=== PATIENT | male | born 1985 | race Hispanic/Latino ===

== ENCOUNTER 2019-09-17 13:46 | Emergency (ER) | payer OTHER, SELFPAY ==
[2019-09-17 13:45] VITALS: BP 155/95; PULSE 85; RESP 18; TEMP 36.7; O2SAT 98
--- NOTE | 2019-09-17 13:47 | DI.CT.S_ITS ---
PROCEDURE: CT HEAD/BRAIN WO CON INDICATIONS: code stroke TECHNIQUE: Noncontrast 4.5 mm thick angled axial sections acquired from the foramen magnum to the vertex, with coronal and sagittal reformats. For radiation dose reduction, the following was used: automated exposure control, adjustment of mA and/or kV according to patient size. COMPARISON: None. FINDINGS: Image quality: Evaluation markedly limited by motion artifact. CSF spaces: Basal cisterns are patent. No extra-axial fluid collections. The ventricles are symmetric in size and shape. Brain: No definite intracranial hemorrhage, mass, or mass effect. Evaluation is markedly limited at the level of the basilar cisterns and posterior fossa by motion artifact. The fernández-white matter junction appears preserved were visualized. Skull and face: Calvarium and visualized facial bones are intact, without suspicious lesions. Sinuses: Visualized sinuses and mastoids are clear. IMPRESSION: 1. Markedly limited study demonstrates no definite acute intracranial abnormality, with nondiagnostic evaluation of the level of the basilar cisterns and posterior fossa. Dictated by: Iggy Briceño M.D. on 09/17/2019 at 13:24 Approved by: Iggy Briceño M.D. on 09/17/2019 at 13:26
--- NOTE | 2019-09-17 13:50 | DI.CT.S_ITS ---
PROCEDURE: CT ANGIO HEAD AND NECK INDICATIONS: Code stroke TECHNIQUE: Pre-contrast 4.5 mm thick sections acquired from the foramen magnum to the vertex. After the administration of intravenous contrast, 1 mm thick sections acquired from the aortic arch through the [place] of [place]. Post-contrast 4.5 mm thick sections then re-acquired from the foramen magnum to the vertex. 3-dimensional vlfjcvg-dwhjbmgao-qlmrjjxmrx (MIP) and/or volume rendering reformats were acquired of the central intracranial vasculature and neck separately. COMPARISON: [facility], CT, CT HEAD/BRAIN WO CON, 09/17/2019, 13:46. FINDINGS: Image quality: Excellent. BRAIN: CSF spaces: Basal cisterns are patent. No extra-axial fluid collections. The ventricles are symmetric in size and shape. Brain: No intracranial hematoma collections, mass, or mass effect. The fernández-white matter junction appears preserved. No abnormal intracranial enhancement. Skull and face: Calvarium and facial bones appear intact, without suspicious lesions. Orbits appear normal. Sinuses: Sinuses and mastoids are clear. HEAD CT ANGIOGRAPHY: Anterior circulation: Intracranial internal carotid arteries appear patent bilaterally. The anterior cerebral arteries appear patent bilaterally. The anterior communicating artery appears patent. The middle cerebral arteries appear patent bilaterally. No high-grade stenosis, occlusion, or filling defects identified. No discrete aneurysm visualized. Posterior circulation: Visualized portions of the vertebral arteries demonstrate appear patent bilaterally and join to form a patent basilar artery. The posterior cerebral arteries appear patent bilaterally. No high-grade stenosis, occlusion, or filling defects identified. No definite cerebral aneurysms. NECK CT ANGIOGRAPHY: Carotid system: The great vessels demonstrate conventional anatomy as they arise from the aortic arch. The origins of the common carotid arteries appear patent. The common carotid arteries demonstrate normal caliber and courses. The bifurcation regions are both widely patent. The internal carotid arteries demonstrate normal calibers and courses. Posterior circulation: The origins of the vertebral arteries both appear widely patent. The more superior extracranial portions of both vertebral arteries also demonstrate normal courses and calibers. They join to form a patent basilar artery. Soft tissues: Visualized neck soft tissues demonstrate no suspicious abnormalities. Bones: No suspicious bony lesions. Visualized cervical spine appears normally aligned. IMPRESSION: 1. No definite acute intracranial abnormality. 2. No high-grade stenosis or occlusion of the central intracranial arteries. 3. No high-grade stenosis or occlusion of the head and neck arteries. The carotid bulbs appear widely patent. Any quantitative measurements of stenosis were performed using NASCET criteria. Dictated by: Iggy Briceño M.D. on 09/17/2019 at 13:27 Approved by: Iggy Briceño M.D. on 09/17/2019 at 13:36
[2019-09-17 14:26] LABS: Add Manual Diff / Slide Review NO; Basophils Absolute Auto 100 /uL (0-100); Basophils Percent Auto 0.6 % (0-2); Eosinophils Absolute Auto 100 /uL (0-450); Eosinophils Percent Auto 1.1 % (2-4); Hematocrit 40.8 % (41-53); Hemoglobin 14.1 g/dL (13.5-17.5); Lymphocytes Absolute Auto 2000 /uL (1100-4500); Lymphocytes Percent Auto 19.1 % (25-40); Mean Corpuscular HGB Conc 34.6 % (30-36); Mean Corpuscular Volume 86.8 fL (80-100); Monocytes Absolute Auto 600 /uL (0-900); Monocytes Percent Auto 5.5 % (3-14); Neutrophils Absolute Auto 7800 /uL (1500-7000); Neutrophils Percent Auto 73.7 % (50-75); Platelet Count 208 X10^3/uL (150-400); Red Blood Cell Count 4.71 X10^6/uL (4.5-5.9); Red Cell Distribution Width 12.3 % (11.6-14.8); White Blood Cell Count 10.6 X10^3/uL (4.5-11.0)
[2019-09-17 14:30] VITALS: BP 146/96; PULSE 88; O2SAT 100
[2019-09-17 14:31] VITALS: BP 146/96; PULSE 109; RESP 20; TEMP 37.1; O2SAT 100
[2019-09-17 14:32] LABS: INR 1.1 (0.9-1.3); Prothrombin Time 12.5 SECONDS (10.1-12.7)
[2019-09-17 14:35] LABS: PTT Partial Thromboplastin Tim 30 SECONDS (26.4-36.2)
[2019-09-17 14:37] LABS: Alanine Aminotransferase 31 IU/L (<50); Albumin 4.4 g/dL (3.5-5.0); Albumin Globulin Ratio 1.6 (1.0-2.8); Alkaline Phosphatase 90 U/L (38-126); Aspartate Aminotransferase 32 IU/L (17-59); BUN Creatinine Ratio 11.1 (6-22); Bilirubin Total 0.9 mg/dL (0.2-1.3); Blood Urea Nitrogen 10 mg/dL (9-20); Calcium 9.1 mg/dL (8.4-10.2); Carbon Dioxide 20 mmol/L (22-32); Chloride 96 mmol/L (98-107); Estimated Glomerular Filt Rate > 60.0 mL/min (>60); Ethanol (ETOH) < 10 mg/dL; Globulin 2.8 g/dL (1.7-4.1); Glucose 101 mg/dL (70-100); HEMOLYSIS < 15 (0-50); Potassium 3.3 mmol/L (3.4-5.1); Sodium 132 mmol/L (137-145); Total Protein 7.2 g/dL (6.3-8.2)
[2019-09-17] MEDS: ACETAMINOPHEN 325 MG TABLET 650 MG PO (14:42)
[2019-09-17] MEDS: diphenhydrAMINE 50 MG/ML VIAL 25 MG IV (14:42)
[2019-09-17] MEDS: METOCLOPRAMIDE 10 MG/2 ML INJ IV (14:42)
[2019-09-17] MEDS: SODIUM CHLORIDE 0.9% 1,000 ML 1000 ML IV (14:42)
--- NOTE | 2019-09-17 14:48 | PC.NURSE ---
1346: Pt arrived to ED via [facility] after sudden onset 10/10 headache. reports he had just showered prior to onset of sx. EMS report at 1320 pt with no focal weakness. Received follow up phone call around 1325 stating pt with R UE weakness and facial droop and to activate Code Stroke. Activated. Pt with rapid assessment by Dr Peters and pt immediately to CT. On arrival glucose 91. Pt skin cool with shaking chills. covered with warm blankets. 20G RAC IV placed in field. Pt with transient UE weakness bilaterally. PERLL. Decreased verbal response/not answering RN questions although awake and alert with adequate eye contact. no gaze noted. States my head. 1354: CT/CTA obtained. pt tolerated well. With RN to Rm 1. Labs obtained and EKG performed. NIH completed with RN and MD. NIH 0. Pt increasingly more verbal. Mild peruvian language barrier. at bedside. Pt states pain decreased to 7/10. Meds given per MAR. Resting in bed. attached to cardiac monitoring. HR 97 BP 146/96. awaiting further orders
[2019-09-17 14:59] VITALS: BP 155/95; PULSE 109; RESP 20; TEMP 37.1; O2SAT 100; BMI 27.9
--- NOTE | 2019-09-17 15:10 | ED.NEUROSD ---
HPI - Neuro Symptoms/Deficit General Chief Complaint: Neuro Symptoms/Deficit Stated Complaint: Headache Time Seen by Provider: 09/17/19 13:46 Source: EMS Mode of arrival: EMS Limitations: no limitations History of Present Illness HPI Narrative: This is a 33-year-old male who denies past medical history who presents with headache as well as some changes in mental status. Patient states that he had a light headache which is over the bilateral posterior aspect of his head this morning, he took a shower around 11:00 a.m., and he had worsening of his headache, became severe so he was seen in clinic, and it sounds like a clinic his responsiveness changed, he was still awake and alert but he was not answering questions, and en route his EMS crew states that he had some intermittent transient weakness 1st on the right than on the left, this is tested with hand squeeze, and was unclear if it was voluntary or not given it seemed to fluctuate. Patient currently is complaining of a severe headache in his posterior occiput, no chest pain, no shortness of breath, no fever. He typically does not get headaches. He did not fall or hit his head. No vomiting. No history of aneurysm, no blood thinners. On Anticoagulants: No Related Data Home Medications Medication Instructions Recorded Confirmed No Known Home Medications 09/17/19 09/17/19 Allergies Allergy/AdvReac Type Severity Reaction Status Date / Time No Known Drug Allergies Allergy Verified 09/17/19 14:02 Review of Systems Constitutional Constitutional: Denies fever(s) and Reports headache(s) ENT Ears, Nose, Mouth, and Throat: Reports headache(s) Cardiovascular Cardiovascular: Denies chest pain and Denies dyspnea Respiratory Respiratory: Denies dyspnea Gastrointestinal Gastrointestinal: Denies vomiting Genitourinary Genitourinary: Denies dysuria Integumentary/Breasts Skin/Breast: Denies rash Neurologic Neurologic: Reports abnormal speech and Reports headache(s) Exam Narrative Exam Narrative: General: Awake, alert Head: Atraumatic Neck: Normal range of motion, no neck stiffness Cardiac: RRR on my exam Respiratory: Normal work of breathing, clear to auscultation bilaterally Abd: Soft, non-tender to palpation in all 4 quadrants Initial Vital Signs Initial Vital Signs: Vital Signs Temperature 98.1 F 09/17/19 13:45 Pulse Rate 85 09/17/19 13:45 Respiratory Rate 18 09/17/19 13:45 Blood Pressure 155/95 H 09/17/19 13:45 Pulse Oximetry 98 09/17/19 13:45 Neuro General: alert, awake and oriented x3 Cranial Nerves: CN's II-XI intact bilaterally Cognition: normal cognition Speech: speech normal Motor: muscle tone normal throughout Sensory Exam: no sensory deficits noted Coordination: ovqjzj-kw-[id number] test normal and ekcr-od-[id number] test normal Pupils: Normal pupillary reactivity/response: right and left Other: Initially patient has 4/5 strength with hand squeeze bilaterally, but after explaining to him the importance of full effort, he has full 5/5 strength in all 4 extremities and no drift. Scores NIH Stroke Scale Level of Conciousness: Alert, keenly responsive Ask month/age: Answers both questions correctly. Open/close eyes, close hand: Performs both tasks correctly Best gaze horizontal: Normal Visual la: No visual loss Facial palsy: Normal symetrical movement Left arm drift: No drift for full 10 sec Right arm drift: No drift for full 10 sec Left leg drift: No drift for full 10 sec Right leg drift: No drift for full 10 sec Limb ataxia: Absent Sensory on face/arms/legs: Normal, no sensory loss Best language: No aphasia, normal Dysarthria: Normal Extinction or inattention: No abnormality Total NIH Stroke scale score: 0 Course Orders Ordered: ED Orders 09/17/19 13:47 CT head/brain wo con Stat 09/17/19 13:50 CT angio head and neck Stat EKG-12 Lead Stat 09/17/19 14:21 Complete Blood Count AUTO DIFF Stat Comprehensive Metabolic Panel Stat Ethanol (ETOH) Stat Partial Thromboplastin Time Stat Prothrombin Time INR Stat 09/17/19 15:18 Urine Drug Screen, Rapid Stat Discontinued Medications Acetaminophen (Tylenol) 650 mg PO NOW ONE Stop: 09/17/19 14:28 Last Admin: 09/17/19 14:42 Dose: 650 mg Documented by: AR Diphenhydramine HCl (Benadryl) 25 mg IV NOW ONE Stop: 09/17/19 14:28 Last Admin: 09/17/19 14:42 Dose: 25 mg Documented by: AR Sodium Chloride (Normal Saline 0.9%) 1,000 mls @ 1,000 mls/hr IV BOLUS STA Stop: 09/17/19 15:26 Last Infusion: 09/17/19 15:37 Dose: 0 mls/hr Documented by: Admin: 09/17/19 14:42 Dose: 1,000 mls/hr Documented by: AR Magnesium Sulfate (Magnesium Sulfate) 2 gm in 50 mls @ 25 mls/hr IV NOW ONE Stop: 09/17/19 17:19 Last Infusion: 09/17/19 16:29 Dose: 0 mls/hr Documented by: AR Cosigned by: KARLOS Admin: 09/17/19 15:35 Dose: 25 mls/hr Documented by: AR Cosigned by: KARLOS Ketorolac Tromethamine (Toradol) 15 mg IV NOW ONE Stop: 09/17/19 16:20 Last Admin: 09/17/19 16:29 Dose: 15 mg Documented by: DEVORAH Metoclopramide HCl (Reglan) 10 mg IV NOW ONE Stop: 09/17/19 14:28 Last Admin: 09/17/19 14:42 Dose: 10 mg Documented by: AR Sumatriptan Succinate (Imitrex) 6 mg SUBCUT NOW ONE Stop: 09/17/19 15:20 Last Admin: 09/17/19 15:36 Dose: 6 mg Documented by: AR Vital Signs Vital signs: Vital Signs - 8 hr 09/17/19 13:45 09/17/19 14:30 09/17/19 14:31 Temperature 98.1 F 98.7 F Pulse Rate 85 88 109 H Respiratory Rate 18 20 Blood Pressure 155/95 H Blood Pressure [Left Arm] 146/96 H 146/96 H Pulse Oximetry 98 100 100 09/17/19 14:59 09/17/19 15:32 09/17/19 16:31 Temperature 98.7 F Pulse Rate 109 H 84 74 Respiratory Rate 20 16 16 Blood Pressure 155/95 H Blood Pressure [Left Arm] 120/73 124/76 Pulse Oximetry 100 100 99 MDM - Neuro Symptoms/Deficit Differential Diagnosis Differential diagnosis: Likely subarachnoid hemorrhage, cerebrovascular accident, transient cerebral ischemia and other (Tension headache, migraine, electrolyte abnormality) Lab Data Attestation: I reviewed the patient's lab results. Result diagrams: 09/17/19 14:21 09/17/19 14:21 Labs: Lab Results 09/17/19 09/17/19 09/17/19 Range/Units 14:21 14:21 14:21 WBC 10.6 (4.5-11.0) X10^3/uL RBC 4.71 (4.5-5.9) X10^6/uL Hgb 14.1 (13.5-17.5) g/dL Hct 40.8 L (41-53) % MCV 86.8 (80-100) fL MCH 30.0 (26-34) PG MCHC 34.6 (30-36) % RDW 12.3 (11.6-14.8) % Plt Count 208 (150-400) X10^3/uL Neut % (Auto) 73.7 (50-75) % Lymph % (Auto) 19.1 L (25-40) % [place] % (Auto) 5.5 (3-14) % Eos % (Auto) 1.1 L (2-4) % Baso % (Auto) 0.6 (0-2) % Neut # (Auto) 7800 H (9936-8714) /uL Lymph # (Auto) 2000 (1764-5261) /uL [place] # (Auto) 600 (0-900) /uL Eos # (Auto) 100 (0-450) /uL Baso # (Auto) 100 (0-100) /uL PT 12.5 (10.1-12.7) SECONDS INR 1.1 (0.9-1.3) APTT 30 (26.4-36.2) SECONDS Sodium 132 L (137-145) mmol/L Potassium 3.3 L (3.4-5.1) mmol/L Chloride 96 L (98-107) mmol/L Carbon Dioxide 20 L (22-32) mmol/L BUN 10 (9-20) mg/dL Creatinine 0.90 (0.66-1.25) mg/dL Estimated GFR > 60.0 (>60) mL/min BUN/Creatinine Ratio 11.1 (6-22) Glucose 101 H (70-100) mg/dL Calcium 9.1 (8.4-10.2) mg/dL Total Bilirubin 0.9 (0.2-1.3) mg/dL AST 32 (17-59) IU/L ALT 31 (<50) IU/L Alkaline Phosphatase 90 (38-126) U/L Total Protein 7.2 (6.3-8.2) g/dL Albumin 4.4 (3.5-5.0) g/dL Globulin 2.8 (1.7-4.1) g/dL Albumin/Globulin Ratio 1.6 (1.0-2.8) U Morph 300 ng/mL cutoff (Negative) Ur Oxycodone Screen (Negative) Urine Methadone Screen (Negative) Ur Barbiturates Screen (Negative) U Tricyclic Antidepress (Negative) Ur Phencyclidine Scrn (Negative) Ur Amphetamines Screen (Negative) U Methamphetamines Scrn (Negative) Ur MDMA Scrn (Ecstasy) (Negative) U Benzodiazepines Scrn (Negative) Urine Cocaine Screen (Negative) U Marijuana (THC) Screen (Negative) Ethyl Alcohol < 10 ( - 10) mg/dL 09/17/19 Range/Units 15:18 WBC (4.5-11.0) X10^3/uL RBC (4.5-5.9) X10^6/uL Hgb (13.5-17.5) g/dL Hct (41-53) % MCV (80-100) fL MCH (26-34) PG MCHC (30-36) % RDW (11.6-14.8) % Plt Count (150-400) X10^3/uL Neut % (Auto) (50-75) % Lymph % (Auto) (25-40) % [place] % (Auto) (3-14) % Eos % (Auto) (2-4) % Baso % (Auto) (0-2) % Neut # (Auto) (4910-6537) /uL Lymph # (Auto) (6061-3527) /uL [place] # (Auto) (0-900) /uL Eos # (Auto) (0-450) /uL Baso # (Auto) (0-100) /uL PT (10.1-12.7) SECONDS INR (0.9-1.3) APTT (26.4-36.2) SECONDS Sodium (137-145) mmol/L Potassium (3.4-5.1) mmol/L Chloride (98-107) mmol/L Carbon Dioxide (22-32) mmol/L BUN (9-20) mg/dL Creatinine (0.66-1.25) mg/dL Estimated GFR (>60) mL/min BUN/Creatinine Ratio (6-22) Glucose (70-100) mg/dL Calcium (8.4-10.2) mg/dL Total Bilirubin (0.2-1.3) mg/dL AST (17-59) IU/L ALT (<50) IU/L Alkaline Phosphatase (38-126) U/L Total Protein (6.3-8.2) g/dL Albumin (3.5-5.0) g/dL Globulin (1.7-4.1) g/dL Albumin/Globulin Ratio (1.0-2.8) U Morph 300 ng/mL cutoff Negative (Negative) Ur Oxycodone Screen Negative (Negative) Urine Methadone Screen Negative (Negative) Ur Barbiturates Screen Negative (Negative) U Tricyclic Antidepress Negative (Negative) Ur Phencyclidine Scrn Negative (Negative) Ur Amphetamines Screen Negative (Negative) U Methamphetamines Scrn Negative (Negative) Ur MDMA Scrn (Ecstasy) Negative (Negative) U Benzodiazepines Scrn Negative (Negative) Urine Cocaine Screen Negative (Negative) U Marijuana (THC) Screen Negative (Negative) Ethyl Alcohol ( - 10) mg/dL Point of Care Testing Glucose POC [address] scan - head: Radiologist's impression: IMPRESSION: 1. Markedly limited study demonstrates no definite acute intracranial abnormality, with nondiagnostic evaluation of the level of the basilar cisterns and posterior fossa. Dictated by: Iggy Briceño M.D. on 09/17/2019 at 13:24 Approved by: Iggy Briceño M.D. on 09/17/2019 at 13:26 CTA head and neck: Radiologist's impression: IMPRESSION: 1. No definite acute intracranial abnormality. 2. No high-grade stenosis or occlusion of the central intracranial arteries. 3. No high-grade stenosis or occlusion of the head and neck arteries. The carotid bulbs appear widely patent. Any quantitative measurements of stenosis were performed using NASCET criteria. Dictated by: Iggy Briceño M.D. on 09/17/2019 at 13:27 Approved by: Iggy Briceño M.D. on 09/17/2019 at 13:36 ECG Data Interpretation: Rate 86, rhythm sinus, and there is no ST segment elevation or depression, no abnormal T-wave inversions, there is some baseline wander especially in V5 which obscures detailed evaluation in this lead MDM Narrative Medical decision making narrative: On arrival patient is awake, alert, he initially was not answering questions until I explained to him the importance of getting information he began speaking normally. His hand squeeze initially was somewhat weak, but this seemed to vary from his left to right hand, seemed very effort-dependent and again after I encouraged him for his best effort he had full 5/5 strength in all extremities. He never had any persistent or convincing deficit on any of my exams. He was taken immediately to CT where CT of the head was unrevealing, though somewhat limited by movement, and CTA of his head and neck also showed no significant stenosis or aneurysm or other abnormality. I performed the entire in-depth neurologic exam with the patient afterwards, and his NIH stroke scale is 0. On repeat examination he continued to have no neurologic deficits. He was given a migraine cocktail for his symptoms and his headache decreased to 5/10. Labs show a mild hyponatremia and hypochloremia, but no significant abnormalities that would explain his symptoms. On repeat examination patient continues to feel well, and have a completely normal neurologic exam. His symptoms are very abnormal for TIA or stroke, and he also has no risk factors for either of these conditions. No confusion, fever, or neck stiffness or leukocytosis to suggest infection or meningitis. MUDS negative. Subarachnoid hemorrhage was of high concern, though it is unlikely given he had a CT head within a few hours of the onset of his symptoms, as well as a negative CTA head and neck. I did discuss with him that a lumbar puncture is the gold standard to rule out subarachnoid hemorrhage or bleed, and that his initial CT was somewhat limited due to his movement. I offered him this procedure but he refused it. He does understand the risk of potential missed head bleed which could be disabling or life-threatening. After several hours of observation in the emergency department patient continues to feel well and would like to go home. I discussed the diagnostic uncertainty of our results, and the importance for PCP follow-up and return to the emergency department if he has any worsening. I also discussed concerning symptoms with patient's , who is in agreement and will monitor patient carefully. Discharge Plan Departure Patient Disposition: Home Clinical Impression: Headache Qualifiers: Headache type: unspecified Headache chronicity pattern: unspecified pattern Intractability: not intractable Qualified Code(s): R51 - Headache Discharge Date/Time: 09/17/19 16:37 Instructions: DI for Headache Activity Restrictions/Additional Instructions: You were seen today for a bad headache. The scans of your head did not show any obvious cause of your headache, I am glad that you are now feeling better. Your labs did show a slightly low sodium and potassium, please follow-up with your primary care doctor to have repeat labs checked to make sure these are not worsening. If you have any recurrence of severe headache, or any other new and concerning symptoms such as fever, weakness or numbness, or confusion, return to the emergency department immediately. Otherwise please follow up with her primary care provider within the next week. You may take Tylenol and ibuprofen for headache if needed. Prescriptions: No Action No Known Home Medications RF: 0
[2019-09-17 15:28] LABS: UR Morphine/Opiate cutoff 300 Negative (Negative); Ur Creatinine 50 (Normal); Ur Specific Gravity 1.015 (Normal); Urine Amphetamines Negative (Negative); Urine Barbiturates Negative (Negative); Urine Benzodiazepines Negative (Negative); Urine Cocaine Negative (Negative); Urine MDMA Negative (Negative); Urine Methadone Negative (Negative); Urine Methamphetamines Negative (Negative); Urine Oxycodone Negative (Negative); Urine Phencyclidine Negative (Negative); Urine Tetrahydrocannabinol Negative (Negative); Urine Tricyclic Antidepressant Negative (Negative); Urine pH 5 (Normal)
[2019-09-17 15:32] VITALS: BP 120/73; PULSE 84; RESP 16; O2SAT 100
[2019-09-17] MEDS: MAGNESIUM SULFATE 2 GM/50 ML PIGGYBACK IV (15:35)
[2019-09-17] MEDS: SUMAtriptan 6 MG/0.5 ML VIAL SUBCUT (15:36)
--- NOTE | 2019-09-17 15:37 | PC.NURSE ---
Pt reports head pain is decreasing. Sumatriptan 6mg given per MAR and Mag 2mg infusing per order. Pt resting in bed and appears more comfortable. at side. remains on cardiac monitoring. Urine obtained and sent per order
[2019-09-17] MEDS: KETOROLAC 60 MG/2 ML VIAL 15 MG IV (16:29)
[2019-09-17 16:31] VITALS: BP 124/76; PULSE 74; RESP 16; O2SAT 99
== END 2019-09-17 16:37 | disposition home or self-care (01) ==
PROVIDERS: Emergency Provider Emergency Medicine
DX: R51 Headache (principal); E87.1 Hypo-osmolality and hyponatremia; E87.8 Other disorders of electrolyte and fluid balance, not elsewhere classified
CPT/HCPCS: 36415; 70450; 70496; 70498; 80053; 80305; 80320; 82962; 85025; 85610; 85730; 93005; 96361; 96365; 96372; 96375; 99283; 99285; 99291; J1200; J1885; J2765; J3030; Q9967

== ENCOUNTER 2019-09-21 10:50 | Emergency (ER) | payer OTHER, SELFPAY ==
[2019-09-21 11:01] VITALS: BP 151/93; PULSE 74; RESP 16; TEMP 36.6; O2SAT 98
--- NOTE | 2019-09-21 11:37 | ED.HA ---
HPI - Headache General Chief Complaint: Headache Stated Complaint: STRONG HEADACHE Time Seen by Provider: 09/21/19 11:37 Source: patient Mode of arrival: Ambulatory Limitations: no limitations History of Present Illness HPI Narrative: This is a 33-year-old male who comes to the emergency department with complaint of headache. She states headache originally occurred Thursday and was sudden onset severe 10/10 worst headache of his life. He was seen here had head CT and CTA which were negative and received medications and had improvement. He states as the medications wore off at he started to have a recurrence of his headache but not to the intensity initially was. He continues to complain of sort of a posterior headache, he states that he also has some low back pain. He states headache is worse when he is upright and better when he is lying flat. Patient states he has had some blurry vision on and off. He states that he had neck pain on Thursday but none now. He denies any fevers or chills. He has had no chest pain or shortness of breath. he was nauseated on Thursday but not since. No vomiting. No issues with urination or bowel movements. No urinary or bladder incontinence. He denies any weakness in his extremities. He felt tingly or numb in his extremities on Thursday but no longer feels that way. Patient states no other prior medical history no prior surgeries. No allergies to medications. 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 He was seen at an outpatient clinic today and they noted his vision was 20/70 bilaterally and was 20/20 several months ago. No other neurologic changes were noted. Related Data Home Medications Medication Instructions Recorded Confirmed acetaminophen 325 mg PO Q4-6H PRN 09/21/19 09/21/19 ibuprofen 600 mg PO QID PRN 09/21/19 09/21/19 sumatriptan succinate 50 mg PO PRN PRN 09/21/19 09/21/19 Previous Rx's Medication Instructions Recorded tramadol [Ultram] 50 mg PO Q6H PRN #5 tab 09/21/19 Allergies Allergy/AdvReac Type Severity Reaction Status Date / Time No Known Drug Allergies Allergy Verified 09/17/19 14:02 Review of Systems Review of Systems ROS Unobtainable: All systems reviewed & are unremarkable except as noted in HPI and below Patient History Social History Smoking Status: Never smoker Smoking Status: Never smoker alcohol intake frequency: holidays/special occasions only Substance Use Type: does not use Exam Narrative Exam Narrative: GEN: well nourished, well appearing male, alert and oriented x 3, patient appears to be in mild distress. HEENT: Atraumatic, pupils are equal round reactive to light, no photophobia, extraocular movements are intact, nares are clear, TMs are clear with no fluid, there is no conjunctival pallor. Throat is clear without any exudates, erythema, tonsillar enlargement or uvular deviation, negative Brudzinski. HEART: Regular rate and rhythm without murmur, clicks, rubs. Pulses are equal in upper and lower extremities LUNGS:Lungs clear to auscultation, no wheezes, rales, crackles, chest moves symmetrically ABD:bowel sounds normal, soft, non-tender, no guarding, rebound, rigidity, no masses noted, no hepatosplenomegaly :No CVA tenderness. MSCL: Non-tender, no muscle atrophy, muscles strength 5/5 upper and lower extremities, full range of motion, normal gait. Patient states a lifting his legs it makes his low back hurt but not his neck or make his headache worse NEURO:CN 2-12 intact, sensation normal. finger nose finger test normal, heel rodarte test normal, romberg normal, normal gait. SKIN: No rash, no petechiae. Initial Vital Signs Initial Vital Signs: Vital Signs Temperature 98 F 09/21/19 11:01 Pulse Rate 74 09/21/19 11:01 Respiratory Rate 16 09/21/19 11:01 Blood Pressure 151/93 H 09/21/19 11:01 Pulse Oximetry 98 09/21/19 11:01 Scores NIH Stroke Scale Level of Conciousness: Alert, keenly responsive Ask month/age: Answers both questions correctly. Open/close eyes, close hand: Performs both tasks correctly Best gaze horizontal: Normal Visual la: No visual loss Facial palsy: Normal symetrical movement Left arm drift: No drift for full 10 sec Right arm drift: No drift for full 10 sec Left leg drift: No drift for full 10 sec Right leg drift: No drift for full 10 sec Limb ataxia: Absent Sensory on face/arms/legs: Normal, no sensory loss Best language: No aphasia, normal Dysarthria: Normal Extinction or inattention: No abnormality Total NIH Stroke scale score: 0 Course Orders Ordered: ED Orders 09/21/19 11:24 Procalcitonin Stat 09/21/19 11:30 Complete Blood Count AUTO DIFF Stat Comprehensive Metabolic Panel Stat Lipase Stat Partial Thromboplastin Time Stat Prothrombin Time INR Stat 09/21/19 11:55 CT head/brain wo con Stat Discontinued Medications Sodium Chloride (Normal Saline 0.9%) 1,000 mls @ 1,000 mls/hr IV BOLUS ONE Stop: 09/21/19 12:56 Last Infusion: 09/21/19 13:42 Dose: 0 mls/hr Documented by: Admin: 09/21/19 12:17 Dose: 1,000 mls/hr Documented by: QUITA Metoclopramide HCl (Reglan) 10 mg IV NOW ONE Stop: 09/21/19 11:58 Last Admin: 09/21/19 12:15 Dose: 10 mg Documented by: QUITA Vital Signs Vital signs: Vital Signs - 8 hr 09/21/19 12:00 09/21/19 13:00 09/21/19 13:41 Pulse Rate 73 89 77 Respiratory Rate 17 16 Blood Pressure 139/78 Blood Pressure [Right Arm] 140/90 132/73 Pulse Oximetry 97 99 98 MDM - Headache Lab Data Attestation: I reviewed the patient's lab results. Result diagrams: 09/21/19 11:30 09/21/19 11:30 Labs: Lab Results 09/21/19 09/21/19 09/21/19 Range/Units 11:24 11:30 11:30 WBC 6.1 (4.5-11.0) X10^3/uL RBC 4.92 (4.5-5.9) X10^6/uL Hgb 15.0 (13.5-17.5) g/dL Hct 42.6 (41-53) % MCV 86.6 (80-100) fL MCH 30.6 (26-34) PG MCHC 35.3 (30-36) % RDW 12.2 (11.6-14.8) % Plt Count 229 (150-400) X10^3/uL Neut % (Auto) 70.6 (50-75) % Lymph % (Auto) 21.8 L (25-40) % Baker % (Auto) 5.1 (3-14) % Eos % (Auto) 1.5 L (2-4) % Baso % (Auto) 1.0 (0-2) % Neut # (Auto) 4300 (5042-3555) /uL Lymph # (Auto) 1300 (0299-9274) /uL Baker # (Auto) 300 (0-900) /uL Eos # (Auto) 100 (0-450) /uL Baso # (Auto) 100 (0-100) /uL PT 11.9 (10.1-12.7) SECONDS INR 1.0 (0.9-1.3) APTT 34 D (26.4-36.2) SECONDS Sodium (137-145) mmol/L Potassium (3.4-5.1) mmol/L Chloride (98-107) mmol/L Carbon Dioxide (22-32) mmol/L BUN (9-20) mg/dL Creatinine (0.66-1.25) mg/dL Estimated GFR (>60) mL/min BUN/Creatinine Ratio (6-22) Glucose (70-100) mg/dL Calcium (8.4-10.2) mg/dL Total Bilirubin (0.2-1.3) mg/dL AST (17-59) IU/L ALT (<50) IU/L Alkaline Phosphatase (38-126) U/L Total Protein (6.3-8.2) g/dL Albumin (3.5-5.0) g/dL Globulin (1.7-4.1) g/dL Albumin/Globulin Ratio (1.0-2.8) Lipase (23-300) U/L Procalcitonin < 0.05 (<0.5) ng/mL 09/21/19 Range/Units 11:30 WBC (4.5-11.0) X10^3/uL RBC (4.5-5.9) X10^6/uL Hgb (13.5-17.5) g/dL Hct (41-53) % MCV (80-100) fL MCH (26-34) PG MCHC (30-36) % RDW (11.6-14.8) % Plt Count (150-400) X10^3/uL Neut % (Auto) (50-75) % Lymph % (Auto) (25-40) % Baker % (Auto) (3-14) % Eos % (Auto) (2-4) % Baso % (Auto) (0-2) % Neut # (Auto) (8513-1010) /uL Lymph # (Auto) (0196-2196) /uL Baker # (Auto) (0-900) /uL Eos # (Auto) (0-450) /uL Baso # (Auto) (0-100) /uL PT (10.1-12.7) SECONDS INR (0.9-1.3) APTT (26.4-36.2) SECONDS Sodium 140 (137-145) mmol/L Potassium 3.8 (3.4-5.1) mmol/L Chloride 100 (98-107) mmol/L Carbon Dioxide 30 (22-32) mmol/L BUN 10 (9-20) mg/dL Creatinine 0.90 (0.66-1.25) mg/dL Estimated GFR > 60.0 (>60) mL/min BUN/Creatinine Ratio 11.1 (6-22) Glucose 101 H (70-100) mg/dL Calcium 9.7 (8.4-10.2) mg/dL Total Bilirubin 1.0 (0.2-1.3) mg/dL AST 30 (17-59) IU/L ALT 33 (<50) IU/L Alkaline Phosphatase 73 (38-126) U/L Total Protein 8.2 (6.3-8.2) g/dL Albumin 4.9 (3.5-5.0) g/dL Globulin 3.3 (1.7-4.1) g/dL Albumin/Globulin Ratio 1.5 (1.0-2.8) Lipase 111 (23-300) U/L Procalcitonin (<0.5) ng/mL Urine Dip Bedside Urine Glucose Negative Bedside Urine Bilirubin - Negative Bedside Urine Ketone - Negative Urine Specific Dunbar 1.01 Bedside Urine Occult Blood - Negative Bedside Urine pH 6.5 Bedside Urine Protein - Negative Bedside Urine Urobilinogen - Negative Bedside Urine Nitrite - Negative Bedside Urine Leukocytes - Negative Esterase Imaging Data CT scan - head: Radiologist's impression: [address] [address] [address] Scan Report Signed Patient: Humble Wayne R#: [id number] : 1985Acct:[id number] Age/Sex: 33 / MDate of Service: 09/21/19 Loc: ED Accession Number: [id number] Procedure: CT head/brain wo con Ordering Provider: Tamanna Drake D.O. PROCEDURE: CT HEAD/BRAIN WO CON INDICATIONS: headache, improved but still present, seen 09/17 TECHNIQUE: Noncontrast 4.5 mm thick angled axial sections acquired from the foramen magnum to the vertex, with coronal and sagittal reformats. For radiation dose reduction, the following was used: automated exposure control, adjustment of mA and/or kV according to patient size. COMPARISON: [facility], CT, CT HEAD/BRAIN WO CON, 09/17/2019, 13:46. FINDINGS: Image quality: Excellent. CSF spaces: Basal cisterns are patent. No extra-axial fluid collections. Ventricles are normal in size and shape. Brain: No midline shift. No intracranial masses or hemorrhage. Grider-white matter interface is normal. Skull and face: Calvarium and visualized facial bones are intact, without suspicious lesions. Sinuses: Visualized sinuses and mastoids are clear. IMPRESSION: No acute intracranial abnormality. Dictated by: Christian Harry M.D. on 09/21/2019 at 12:24 Approved by: Christian Harry M.D. on 09/21/2019 at 12:27 [facility] [place] Narrative Medical decision making narrative: Discussed with patient from examination patient's neurologic exam is normal. his headache is still present but sounds improved, he does have increased headache with when he is upright and improved while lying flat. His at outpatient his vision was 20/70 here in the emergency department it is, 20/50 bilaterally and 20/[address]. Patient's head CT is negative. head CT and angiography were reviewed from 09/17 Patient's lab work shows, normal coags, glucose is 101 but otherwise normal renal function and electrolytes, procalcitonin is negative. Discussed with patient would recommend next step is a lumbar puncture, this would be to evaluate for bleeding, infection or elevated pressure. Discussed with patient he does not have a typical meningeal symptoms, he came in January pre it time course for CT CTA for evaluation but there is chance that this could have been missed. Patient and I discussed the procedure risks versus benefits and he elects not to do it at this time. He understands that we could be missing bleeding in the brain, meningitis although his lab work does not support that secondary diagnosis. We discussed that I would recommend he see Ophthalmology to evaluate vision as well as for papilledema and that next step would be a follow-up with Neurology as well. patient did ask for short course of pain medication that stronger than Tylenol or ibuprofen. He deferred any additional medication here in the department. Discharge Plan Departure Patient Disposition: Home Clinical Impression: Headache Discharge Date/Time: 09/21/19 13:42 Instructions: DI for Headache Activity Restrictions/Additional Instructions: Follow up with your primary care provider for re-evaluation, I would discuss having evaluation by Ophthalmology to evaluate vision as well as for papilledema, discussion about if Neurology referral as appropriate. Imaging and lab work today do not show any acute changes, there is always a potential that we could be missing bleeding, infection or other causes of your headache that are dangers today so it is important to return if you are having new or changing symptoms as we did not do a Lumbar puncture today. Return to the ER for fevers greater 100.4 F, rapidly worsening headaches, altered mental status, change in vision or loss of vision, persistent vomiting, difficulty with speech, new numbness, weakness or difficulty with movement, walking or other new or concerning symptoms Prescriptions: New tramadol [Ultram] 50 mg tablet 50 mg PO Q6H PRN (Reason: pain) Qty: 5 RF: 0 No Action acetaminophen 325 mg tablet 325 mg PO Q4-6H PRN (Reason: pain) RF: 0 sumatriptan succinate 50 mg tablet 50 mg PO PRN PRN (Reason: Migraine Headache) RF: 0 ibuprofen 600 mg tablet 600 mg PO QID PRN (Reason: pain) RF: 0 Stand Alone Forms: Work Release Note
[2019-09-21 11:41] LABS: Add Manual Diff / Slide Review NO; Basophils Absolute Auto 100 /uL (0-100); Eosinophils Absolute Auto 100 /uL (0-450); Eosinophils Percent Auto 1.5 % (2-4); Hematocrit 42.6 % (41-53); Lymphocytes Absolute Auto 1300 /uL (1100-4500); Lymphocytes Percent Auto 21.8 % (25-40); Mean Corpuscular HGB Conc 35.3 % (30-36); Mean Corpuscular Hemoglobin 30.6 PG (26-34); Mean Corpuscular Volume 86.6 fL (80-100); Monocytes Absolute Auto 300 /uL (0-900); Monocytes Percent Auto 5.1 % (3-14); Neutrophils Absolute Auto 4300 /uL (1500-7000); Neutrophils Percent Auto 70.6 % (50-75); Platelet Count 229 X10^3/uL (150-400); Red Blood Cell Count 4.92 X10^6/uL (4.5-5.9); Red Cell Distribution Width 12.2 % (11.6-14.8); White Blood Cell Count 6.1 X10^3/uL (4.5-11.0)
[2019-09-21 11:42] LABS: Prothrombin Time 11.9 SECONDS (10.1-12.7)
[2019-09-21 11:45] LABS: PTT Partial Thromboplastin Tim 34 SECONDS (26.4-36.2)
[2019-09-21 11:46] LABS: Alanine Aminotransferase 33 IU/L (<50); Albumin 4.9 g/dL (3.5-5.0); Albumin Globulin Ratio 1.5 (1.0-2.8); Alkaline Phosphatase 73 U/L (38-126); Aspartate Aminotransferase 30 IU/L (17-59); BUN Creatinine Ratio 11.1 (6-22); Blood Urea Nitrogen 10 mg/dL (9-20); Calcium 9.7 mg/dL (8.4-10.2); Carbon Dioxide 30 mmol/L (22-32); Chloride 100 mmol/L (98-107); Estimated Glomerular Filt Rate > 60.0 mL/min (>60); Globulin 3.3 g/dL (1.7-4.1); Glucose 101 mg/dL (70-100); HEMOLYSIS < 15 (0-50); Lipase 111 U/L (23-300); Potassium 3.8 mmol/L (3.4-5.1); Sodium 140 mmol/L (137-145); Total Protein 8.2 g/dL (6.3-8.2)
--- NOTE | 2019-09-21 11:55 | DI.CT.S_ITS ---
PROCEDURE: CT HEAD/BRAIN WO CON INDICATIONS: headache, improved but still present, seen 09/17 TECHNIQUE: Noncontrast 4.5 mm thick angled axial sections acquired from the foramen magnum to the vertex, with coronal and sagittal reformats. For radiation dose reduction, the following was used: automated exposure control, adjustment of mA and/or kV according to patient size. COMPARISON: [facility], CT, CT HEAD/BRAIN WO CON, 09/17/2019, 13:46. FINDINGS: Image quality: Excellent. CSF spaces: Basal cisterns are patent. No extra-axial fluid collections. Ventricles are normal in size and shape. Brain: No midline shift. No intracranial masses or hemorrhage. Grider-white matter interface is normal. Skull and face: Calvarium and visualized facial bones are intact, without suspicious lesions. Sinuses: Visualized sinuses and mastoids are clear. IMPRESSION: No acute intracranial abnormality. Dictated by: Christian Harry M.D. on 09/21/2019 at 12:24 Approved by: Christian Harry M.D. on 09/21/2019 at 12:27
[2019-09-21 12:00] VITALS: BP 140/90; PULSE 73; RESP 17; O2SAT 97
[2019-09-21] MEDS: METOCLOPRAMIDE 10 MG/2 ML INJ IV (12:15)
[2019-09-21] MEDS: SODIUM CHLORIDE 0.9% 1,000 ML 1000 ML IV (12:17)
[2019-09-21 12:36] LABS: Procalcitonin < 0.05 ng/mL (<0.5)
[2019-09-21 13:00] VITALS: BP 132/73; PULSE 89; O2SAT 99
[2019-09-21 13:41] VITALS: BP 139/78; PULSE 77; RESP 16; O2SAT 98
== END 2019-09-21 13:42 | disposition home or self-care (01) ==
PROVIDERS: Emergency Provider Emergency Medicine
DX: R51 Headache (principal)
CPT/HCPCS: 36415; 70450; 80053; 81003; 83690; 84145; 85025; 85610; 85730; 96374; 99282; 99284; J2765

== ENCOUNTER 2019-09-25 10:44 | Emergency (ER) | payer OTHER, SELFPAY ==
[2019-09-25 10:48] VITALS: BP 135/84; PULSE 73; RESP 20; TEMP 37.1; O2SAT 100; BMI 27.8
[2019-09-25] MEDS: SODIUM CHLORIDE 0.9% 1,000 ML 1000 ML IV (11:16)
--- NOTE | 2019-09-25 11:18 | ED_ITS ---
HPI - Headache <ELIOT Longo-BC - Last Filed: 09/25/19 14:34> General Chief Complaint: Headache Stated Complaint: headache 9x days, stomach pain/ vomiting/ not eati Time Seen by Provider: 09/25/19 10:46 Source: patient Mode of arrival: Ambulatory Limitations: no limitations History of Present Illness HPI Narrative: The patient is a 33-year-old male nonsmoker with history of migraine who presents for chief complaint of a headache for 9 days. He was evaluated at this facility on 09/17 as a potential stroke, and states that is when his headache started. The patient had a normal non-con CT, normal head neck CTA at that point in time. He had an NIH score of 0 at that point, was gi [facility] a migraine cocktail and his headache decreased to a 5/10. He was discharged with strict return precautions and follow-up instructions. He return to this emergency department on 09/21 with a chief complaint of continued headache. He had another normal head non-con. He had instructions to follow up with his primary care provider, as well as Ophthalmology and Neurology. He has not followed up with anybody at this point in time and has not seen his primary care provider. Today he states that his pain today is not as bad as it initially was, but that it is still 10/10. He has taken ibuprofen and tramadol today. He has not taken his Imitrex. He states he drove himself to the emergency department. Yesterday he started having some nausea and vomiting. He denies any abdominal pain. He states he has photophobia and phonophobia. His vision is blurry from time to time, but states it is fine now. He denies any numbness or tingling. Related Data Home Medications Medication Instructions Recorded Confirmed acetaminophen 325 mg PO Q4-6H PRN 09/21/19 09/21/19 ibuprofen 600 mg PO QID PRN 09/21/19 09/21/19 sumatriptan succinate 50 mg PO PRN PRN 09/21/19 09/21/19 Previous Rx's Medication Instructions Recorded tramadol [Ultram] 50 mg PO Q6H PRN #5 tab 09/21/19 Allergies Allergy/AdvReac Type Severity Reaction Status Date / Time No Known Drug Allergies Allergy Verified 09/17/19 14:02 Review of Systems <ELIOT Longo- - Last Filed: 09/25/19 14:34> Review of Systems Narrative: GENERAL: Denies chills, fatigue, malaise, fever, sweats. HEENT: Denies sinus pain, ear pain, sore throat, difficulty swallowing, dizzin ess. RESPIRATORY: Denies dyspnea, cough, wheezing, hemoptysis, sputum. CARDIOVASCULAR: Denies chest pain, palpitations, orthopnea, edema, GASTROINTESTINAL: Denies nausea, vomiting, abdominal pain, diarrhea, constipation, melena. : Denies dysuria, frequency, incontinence, hematuria, urinary retention. MUSCULOSKELETAL: denies weakness, joint pain, or bony pain SKIN: Denies rash, skin lesions, or other NEUROLOGIC: See HPI PSYCHIATRIC: No concerning psychosocial issues. 12 point review of systems is negative except for those stated above [facility] Last Filed: 09/25/19 14:34> Social History Smoking Status: Never smoker Smoking Status: Never smoker alcohol intake frequency: holidays/special occasions only Substance Use Type: does not use Exam <[facility] Last Filed: 09/25/19 14:34> Narrative Exam Narrative: GENERAL: This is a well-nourished, well-developed patient, no acute distress HEAD: Atraumatic. Normocephalic. No temporal or scalp tenderness. EYES: Pupils equal round and reactive. Extraocular motions intact. No scleral icterus. No injection or drainage. ENT: Nose without bleeding, purulent drainage or septal hematoma. Throat without erythema, tonsillar hypertrophy or exudate. Uvula midline. Airway patent. NECK: Trachea midline. No JVD or lymphadenopathy. Supple, nontender, no meningeal signs. CARDIOVASCULAR: Regular rate and rhythm without murmurs, gallops, or rubs. RESPIRATORY: Clear to auscultation. Breath sounds equal bilaterally. No wheezes, rales, or rhonchi. No cough. No increased respiratory effort. No accessory muscle use GASTROINTESTINAL: Abdomen soft, non-tender, nondistended. No hepato- splenomegaly, or palpable masses. No guarding. Active bowel sounds all 4 quadrants. EXTREMITIES: No clubbing, cyanosis, or edema. No joint tenderness, effusion, or edema noted. BACK: Nontender without deformity or crepitance. No flank tenderness. NEURO: AOx3. Cranial nerves grossly intact. Using all extremities equally. Clear speech. GCS 15. NIH is 0. Stable gait SKIN: No rash or erythema on visible skin Initial Vital Signs Initial Vital Signs: Vital Signs Temperature 98.7 F 09/25/19 10:48 Pulse Rate 73 09/25/19 10:48 Respiratory Rate 20 09/25/19 10:48 Blood Pressure 135/84 09/25/19 10:48 Pulse Oximetry 100 09/25/19 10:48 <Mine Vega MD - Last Filed: 09/25/19 17:48> Initial Vital Signs Initial Vital Signs: Vital Signs Temperature 98.7 F 09/25/19 10:48 Pulse Rate 73 09/25/19 10:48 Respiratory Rate 20 09/25/19 10:48 Blood Pressure 135/84 09/25/19 10:48 Pulse Oximetry 100 09/25/19 10:48 Scores <VI Longo - Last Filed: 09/25/19 14:34> GCS [place] coma scale eye opening: Spontaneous [place] coma scale verbal response: Orientated [place] coma scale motor response: Obey commands [place] coma scale total score: 15 NIH Stroke Scale Level of Conciousness: Alert, keenly responsive Ask month/age: Answers both questions correctly. Open/close eyes, close hand: Performs both tasks correctly Best gaze horizontal: Normal Visual la: No visual loss Facial palsy: Normal symetrical movement Left arm drift: No drift for full 10 sec Right arm drift: No drift for full 10 sec Left leg drift: No drift for full 10 sec Right leg drift: No drift for full 10 sec Limb ataxia: Absent Sensory on face/arms/legs: Normal, no sensory loss Best language: No aphasia, normal Dysarthria: Normal Extinction or inattention: No abnormality Total NIH Stroke scale score: 0 Course <VI Longo - Last Filed: 09/25/19 14:34> Orders Ordered: ED Orders 09/25/19 10:58 Influenza A & B (PCR) Stat 09/25/19 11:01 Amylase Stat Complete Blood Count AUTO DIFF Stat Comprehensive Metabolic Panel Stat Lipase Stat Partial Thromboplastin Time Stat Procalcitonin Stat Prothrombin Time INR Stat 09/25/19 12:49 Urine Drug Screen, Rapid Stat Discontinued Medications Dexamethasone (Decadron) 10 mg IV NOW ONE Stop: 09/25/19 11:14 Last Admin: 09/25/19 11:29 Dose: 10 mg Documented by: LARRY Diphenhydramine HCl (Benadryl) 25 mg IV NOW ONE Stop: 09/25/19 11:14 Last Admin: 09/25/19 11:29 Dose: 25 mg Documented by: LARRY Sodium Chloride (Normal Saline 0.9%) 1,000 mls @ 1,000 mls/hr IV BOLUS ONE Stop: 09/25/19 11:56 Last Infusion: 09/25/19 12:52 Dose: 0 mls/hr Documented by: Admin: 09/25/19 11:16 Dose: 1,000 mls/hr Documented by: LARRY Ketorolac Tromethamine (Toradol) 30 mg IV NOW ONE Stop: 09/25/19 12:17 Last Admin: 09/25/19 12:58 Dose: 30 mg Documented by: LARRY Metoclopramide HCl (Reglan) 10 mg IV NOW ONE Stop: 09/25/19 11:31 Last Admin: 09/25/19 11:28 Dose: 10 mg Documented by: LARRY Sumatriptan Succinate (Imitrex) 6 mg SUBCUT NOW ONE Stop: 09/25/19 12:08 Last Admin: 09/25/19 12:59 Dose: 6 mg Documented by: LARRY Vital Signs Vital signs: Vital Signs - 8 hr 09/25/19 10:48 09/25/19 12:00 09/25/19 12:30 Temperature 98.7 F Pulse Rate 73 75 73 Respiratory Rate 20 Blood Pressure 135/84 Blood Pressure [Right Arm] 128/76 122/81 Pulse Oximetry 100 100 100 09/25/19 13:00 09/25/19 13:36 Temperature Pulse Rate 75 Respiratory Rate Blood Pressure Blood Pressure [Right Arm] 139/74 132/73 Pulse Oximetry 100 <Mine Vega MD - Last Filed: 09/25/19 17:48> Orders Ordered: ED Orders 09/25/19 10:58 Influenza A & B (PCR) Stat 09/25/19 11:01 Amylase Stat Complete Blood Count AUTO DIFF Stat Comprehensive Metabolic Panel Stat Lipase Stat Partial Thromboplastin Time Stat Procalcitonin Stat Prothrombin Time INR Stat 09/25/19 12:49 Urine Drug Screen, Rapid Stat Discontinued Medications Dexamethasone (Decadron) 10 mg IV NOW ONE Stop: 09/25/19 11:14 Last Admin: 09/25/19 11:29 Dose: 10 mg Documented by: BEKASENAmber Diphenhydramine HCl (Benadryl) 25 mg IV NOW ONE Stop: 09/25/19 11:14 Last Admin: 09/25/19 11:29 Dose: 25 mg Documented by: BEKASENAmber Sodium Chloride (Normal Saline 0.9%) 1,000 mls @ 1,000 mls/hr IV BOLUS ONE Stop: 09/25/19 11:56 Last Infusion: 09/25/19 12:52 Dose: 0 mls/hr Documented by: BEKASENAmber Admin: 09/25/19 11:16 Dose: 1,000 mls/hr Documented by: BEKASENAmber Ketorolac Tromethamine (Toradol) 30 mg IV NOW ONE Stop: 09/25/19 12:17 Last Admin: 09/25/19 12:58 Dose: 30 mg Documented by: BEKASENAmber Metoclopramide HCl (Reglan) 10 mg IV NOW ONE Stop: 09/25/19 11:31 Last Admin: 09/25/19 11:28 Dose: 10 mg Documented by: BEKASENAmber Sumatriptan Succinate (Imitrex) 6 mg SUBCUT NOW ONE Stop: 09/25/19 12:08 Last Admin: 09/25/19 12:59 Dose: 6 mg Documented by: LARRY Vital Signs Vital signs: Vital Signs - 8 hr 09/25/19 10:48 09/25/19 12:00 09/25/19 12:30 Temperature 98.7 F Pulse Rate 73 75 73 Respiratory Rate 20 Blood Pressure 135/84 Blood Pressure [Right Arm] 128/76 122/81 Pulse Oximetry 100 100 100 09/25/19 13:00 09/25/19 13:36 Temperature Pulse Rate 75 Respiratory Rate Blood Pressure Blood Pressure [Right Arm] 139/74 132/73 Pulse Oximetry 100 MDM - Headache <VI Longo - Last Filed: 09/25/19 14:34> Differential Diagnosis Differential diagnosis: Likely migraine, tension headache, subarachnoid hemorrhage and headache Lab Data Result diagrams: 09/25/19 11:01 09/25/19 11:01 Labs: Lab Results 09/25/19 09/25/19 09/25/19 Range/Units 10:58 11:01 11:01 WBC 9.4 (4.5-11.0) X10^3/uL RBC 4.68 (4.5-5.9) X10^6/uL Hgb 14.2 (13.5-17.5) g/dL Hct 40.3 L (41-53) % MCV 86.0 (80-100) fL MCH 30.4 (26-34) PG MCHC 35.3 (30-36) % RDW 12.4 (11.6-14.8) % Plt Count 232 (150-400) X10^3/uL Neut % (Auto) 78.1 H (50-75) % Lymph % (Auto) 15.1 L (25-40) % [place] % (Auto) 5.4 (3-14) % Eos % (Auto) 0.2 L (2-4) % Baso % (Auto) 1.2 (0-2) % Neut # (Auto) 7300 H (1231-6719) /uL Lymph # (Auto) 1400 (2313-3295) /uL [place] # (Auto) 500 (0-900) /uL Eos # (Auto) 0 (0-450) /uL Baso # (Auto) 100 (0-100) /uL PT (10.1-12.7) SECONDS INR (0.9-1.3) APTT (26.4-36.2) SECONDS Sodium 137 (137-145) mmol/L Potassium 3.9 (3.4-5.1) mmol/L Chloride 97 L (98-107) mmol/L Carbon Dioxide 29 (22-32) mmol/L BUN 9 (9-20) mg/dL Creatinine 0.90 (0.66-1.25) mg/dL Estimated GFR > 60.0 (>60) mL/min BUN/Creatinine Ratio 10.0 (6-22) Glucose 118 H (70-100) mg/dL Calcium 9.8 (8.4-10.2) mg/dL Total Bilirubin 1.0 (0.2-1.3) mg/dL AST 25 (17-59) IU/L ALT 28 (<50) IU/L Alkaline Phosphatase 77 (38-126) U/L Total Protein 8.1 (6.3-8.2) g/dL Albumin 4.9 (3.5-5.0) g/dL Globulin 3.2 (1.7-4.1) g/dL Albumin/Globulin Ratio 1.5 (1.0-2.8) Amylase 73 (30-110) U/L Lipase 106 (23-300) U/L Procalcitonin (<0.5) ng/mL U Morph 300 ng/mL cutoff (Negative) Ur Oxycodone Screen (Negative) Urine Methadone Screen (Negative) Ur Barbiturates Screen (Negative) U Tricyclic Antidepress (Negative) Ur Phencyclidine Scrn (Negative) Ur Amphetamines Screen (Negative) U Methamphetamines Scrn (Negative) Ur MDMA Scrn (Ecstasy) (Negative) U Benzodiazepines Scrn (Negative) Urine Cocaine Screen (Negative) U Marijuana (THC) Screen (Negative) Influenza A (RT-PCR) Flu a negative (NEGATIVE) Influenza B (RT-PCR) Flu b negative (NEGATIVE) 09/25/19 09/25/19 09/25/19 Range/Units 11:01 11:01 12:49 WBC (4.5-11.0) X10^3/uL RBC (4.5-5.9) X10^6/uL Hgb (13.5-17.5) g/dL Hct (41-53) % MCV (80-100) fL MCH (26-34) PG MCHC (30-36) % RDW (11.6-14.8) % Plt Count (150-400) X10^3/uL Neut % (Auto) (50-75) % Lymph % (Auto) (25-40) % [place] % (Auto) (3-14) % Eos % (Auto) (2-4) % Baso % (Auto) (0-2) % Neut # (Auto) (5287-7365) /uL Lymph # (Auto) (3084-4497) /uL [place] # (Auto) (0-900) /uL Eos # (Auto) (0-450) /uL Baso # (Auto) (0-100) /uL PT 12.0 (10.1-12.7) SECONDS INR 1.0 (0.9-1.3) APTT 32 D (26.4-36.2) SECONDS Sodium (137-145) mmol/L Potassium (3.4-5.1) mmol/L Chloride (98-107) mmol/L Carbon Dioxide (22-32) mmol/L BUN (9-20) mg/dL Creatinine (0.66-1.25) mg/dL Estimated GFR (>60) mL/min BUN/Creatinine Ratio (6-22) Glucose (70-100) mg/dL Calcium (8.4-10.2) mg/dL Total Bilirubin (0.2-1.3) mg/dL AST (17-59) IU/L ALT (<50) IU/L Alkaline Phosphatase (38-126) U/L Total Protein (6.3-8.2) g/dL Albumin (3.5-5.0) g/dL Globulin (1.7-4.1) g/dL Albumin/Globulin Ratio (1.0-2.8) Amylase (30-110) U/L Lipase (23-300) U/L Procalcitonin < 0.05 (<0.5) ng/mL U Morph 300 ng/mL cutoff Negative (Negative) Ur Oxycodone Screen Negative (Negative) Urine Methadone Screen Negative (Negative) Ur Barbiturates Screen Negative (Negative) U Tricyclic Antidepress Negative (Negative) Ur Phencyclidine Scrn Negative (Negative) Ur Amphetamines Screen Negative (Negative) U Methamphetamines Scrn Negative (Negative) Ur MDMA Scrn (Ecstasy) Negative (Negative) U Benzodiazepines Scrn Negative (Negative) Urine Cocaine Screen Negative (Negative) U Marijuana (THC) Screen Negative (Negative) Influenza A (RT-PCR) (NEGATIVE) Influenza B (RT-PCR) (NEGATIVE) Urine Dip Bedside Urine Glucose Negative Bedside Urine Bilirubin - Negative Bedside Urine Ketone +/- 5 Urine Specific [place] 1.015 Bedside Urine Occult Blood - Negative Bedside Urine pH 6.5 Bedside Urine Protein +/- 15 Bedside Urine Urobilinogen +/- 1mg Bedside Urine Nitrite - Negative Bedside Urine Leukocytes - Negative Esterase MDM Narrative Medical decision making narrative: The patient is a 33-year-old male who presents with a chief complaint of continued headache for the past 9 days. He h as been evaluated this facility on September 17 as well as September 21. He has had 2 CT a non-con, 1 CTA head and neck. Lab work returns grossly normal. UDS is negative. UA is negative. Everything of come back overall very well. He has not tried his prescription migraine medications. He is NIH is 0, GCS 15. I do not see the need to repeat any imaging at this point time. The patient received migraine medication the emergency department and felt much improved. He was eating and drinking in the emergency department. He requested to go home. I did discuss as per previous visits of lumbar puncture to evaluate for bleeding, infection, elevated pressure. Patient states he feels improved and does not want to do that at this point time. I discussed at length pushing fluids, rest, follow up with primary care provider as well as follow through on the referrals that have been made on his behalf. Discussed come back to ER for any acute concerns. Patient has no questions or concerns upon discharge and states understanding of return precautions as well as follow-up care. <Mine Vega MD - Last Filed: 09/25/19 17:48> Lab Data Labs: Lab Results 09/25/19 09/25/19 09/25/19 Range/Units 10:58 11:01 11:01 WBC 9.4 (4.5-11.0) X10^3/uL RBC 4.68 (4.5-5.9) X10^6/uL Hgb 14.2 (13.5-17.5) g/dL Hct 40.3 L (41-53) % MCV 86.0 (80-100) fL MCH 30.4 (26-34) PG MCHC 35.3 (30-36) % RDW 12.4 (11.6-14.8) % Plt Count 232 (150-400) X10^3/uL Neut % (Auto) 78.1 H (50-75) % Lymph % (Auto) 15.1 L (25-40) % [place] % (Auto) 5.4 (3-14) % Eos % (Auto) 0.2 L (2-4) % Baso % (Auto) 1.2 (0-2) % Neut # (Auto) 7300 H (4272-9800) /uL Lymph # (Auto) 1400 (2197-3991) /uL [place] # (Auto) 500 (0-900) /uL Eos # (Auto) 0 (0-450) /uL Baso # (Auto) 100 (0-100) /uL PT (10.1-12.7) SECONDS INR (0.9-1.3) APTT (26.4-36.2) SECONDS Sodium 137 (137-145) mmol/L Potassium 3.9 (3.4-5.1) mmol/L Chloride 97 L (98-107) mmol/L Carbon Dioxide 29 (22-32) mmol/L BUN 9 (9-20) mg/dL Creatinine 0.90 (0.66-1.25) mg/dL Estimated GFR > 60.0 (>60) mL/min BUN/Creatinine Ratio 10.0 (6-22) Glucose 118 H (70-100) mg/dL Calcium 9.8 (8.4-10.2) mg/dL Total Bilirubin 1.0 (0.2-1.3) mg/dL AST 25 (17-59) IU/L ALT 28 (<50) IU/L Alkaline Phosphatase 77 (38-126) U/L Total Protein 8.1 (6.3-8.2) g/dL Albumin 4.9 (3.5-5.0) g/dL Globulin 3.2 (1.7-4.1) g/dL Albumin/Globulin Ratio 1.5 (1.0-2.8) Amylase 73 (30-110) U/L Lipase 106 (23-300) U/L Procalcitonin (<0.5) ng/mL U Morph 300 ng/mL cutoff (Negative) Ur Oxycodone Screen (Negative) Urine Methadone Screen (Negative) Ur Barbiturates Screen (Negative) U Tricyclic Antidepress (Negative) Ur Phencyclidine Scrn (Negative) Ur Amphetamines Screen (Negative) U Methamphetamines Scrn (Negative) Ur MDMA Scrn (Ecstasy) (Negative) U Benzodiazepines Scrn (Negative) Urine Cocaine Screen (Negative) U Marijuana (THC) Screen (Negative) Influenza A (RT-PCR) Flu a negative (NEGATIVE) Influenza B (RT-PCR) Flu b negative (NEGATIVE) 09/25/19 09/25/19 09/25/19 Range/Units 11:01 11:01 12:49 WBC (4.5-11.0) X10^3/uL RBC (4.5-5.9) X10^6/uL Hgb (13.5-17.5) g/dL Hct (41-53) % MCV (80-100) fL MCH (26-34) PG MCHC (30-36) % RDW (11.6-14.8) % Plt Count (150-400) X10^3/uL Neut % (Auto) (50-75) % Lymph % (Auto) (25-40) % [place] % (Auto) (3-14) % Eos % (Auto) (2-4) % Baso % (Auto) (0-2) % Neut # (Auto) (1189-2041) /uL Lymph # (Auto) (0530-5291) /uL [place] # (Auto) (0-900) /uL Eos # (Auto) (0-450) /uL Baso # (Auto) (0-100) /uL PT 12.0 (10.1-12.7) SECONDS INR 1.0 (0.9-1.3) APTT 32 D (26.4-36.2) SECONDS Sodium (137-145) mmol/L Potassium (3.4-5.1) mmol/L Chloride (98-107) mmol/L Carbon Dioxide (22-32) mmol/L BUN (9-20) mg/dL Creatinine (0.66-1.25) mg/dL Estimated GFR (>60) mL/min BUN/Creatinine Ratio (6-22) Glucose (70-100) mg/dL Calcium (8.4-10.2) mg/dL Total Bilirubin (0.2-1.3) mg/dL AST (17-59) IU/L ALT (<50) IU/L Alkaline Phosphatase (38-126) U/L Total Protein (6.3-8.2) g/dL Albumin (3.5-5.0) g/dL Globulin (1.7-4.1) g/dL Albumin/Globulin Ratio (1.0-2.8) Amylase (30-110) U/L Lipase (23-300) U/L Procalcitonin < 0.05 (<0.5) ng/mL U Morph 300 ng/mL cutoff Negative (Negative) Ur Oxycodone Screen Negative (Negative) Urine Methadone Screen Negative (Negative) Ur Barbiturates Screen Negative (Negative) U Tricyclic Antidepress Negative (Negative) Ur Phencyclidine Scrn Negative (Negative) Ur Amphetamines Screen Negative (Negative) U Methamphetamines Scrn Negative (Negative) Ur MDMA Scrn (Ecstasy) Negative (Negative) U Benzodiazepines Scrn Negative (Negative) Urine Cocaine Screen Negative (Negative) U Marijuana (THC) Screen Negative (Negative) Influenza A (RT-PCR) (NEGATIVE) Influenza B (RT-PCR) (NEGATIVE) Urine Dip Bedside Urine Glucose Negative Bedside Urine Bilirubin - Negative Bedside Urine Ketone +/- 5 Urine Specific [place] 1.015 Bedside Urine Occult Blood - Negative Bedside Urine pH 6.5 Bedside Urine Protein +/- 15 Bedside Urine Urobilinogen +/- 1mg Bedside Urine Nitrite - Negative Bedside Urine Leukocytes - Negative Esterase Discharge Plan Departure Patient Disposition: Home Clinical Impression: Headache Qualifiers: Headache type: unspecified Headache chronicity pattern: unspecified pattern Intractability: not intractable Qualified Code(s): R51 - Headache Discharge Date/Time: 09/25/19 14:38 Activity Restrictions/Additional Instructions: As discussed, please follow-up with primary care provider follow through with her specialist recommendations. Today we gave you headache medication including an anti-inflammatory as well as Imitrex, which you already have a prescription of. You responded very well to the Imitrex. Please rest, push fluids and sleep. Please come back to the emergency department for any acute concerns. Prescriptions: No Action acetaminophen 325 mg tablet 325 mg PO Q4-6H PRN (Reason: pain) RF: 0 sumatriptan succinate 50 mg tablet 50 mg PO PRN PRN (Reason: Migraine Headache) RF: 0 ibuprofen 600 mg tablet 600 mg PO QID PRN (Reason: pain) RF: 0 tramadol [Ultram] 50 mg tablet 50 mg PO Q6H PRN (Reason: pain) Qty: 5 RF: 0 Referrals: [facility] [Provider Group]
[2019-09-25 11:22] LABS: Add Manual Diff / Slide Review NO; Basophils Absolute Auto 100 /uL (0-100); Basophils Percent Auto 1.2 % (0-2); Eosinophils Absolute Auto 0 /uL (0-450); Eosinophils Percent Auto 0.2 % (2-4); Hematocrit 40.3 % (41-53); Hemoglobin 14.2 g/dL (13.5-17.5); Lymphocytes Absolute Auto 1400 /uL (1100-4500); Lymphocytes Percent Auto 15.1 % (25-40); Mean Corpuscular HGB Conc 35.3 % (30-36); Mean Corpuscular Hemoglobin 30.4 PG (26-34); Monocytes Absolute Auto 500 /uL (0-900); Monocytes Percent Auto 5.4 % (3-14); Neutrophils Absolute Auto 7300 /uL (1500-7000); Neutrophils Percent Auto 78.1 % (50-75); Platelet Count 232 X10^3/uL (150-400); Red Blood Cell Count 4.68 X10^6/uL (4.5-5.9); Red Cell Distribution Width 12.4 % (11.6-14.8); White Blood Cell Count 9.4 X10^3/uL (4.5-11.0)
[2019-09-25] MEDS: METOCLOPRAMIDE 10 MG/2 ML INJ IV (11:28)
[2019-09-25] MEDS: diphenhydrAMINE 50 MG/ML VIAL 25 MG IV (11:29)
[2019-09-25] MEDS: DEXAMETHASONE 10 MG/ML VIAL IV (11:29)
[2019-09-25 11:31] LABS: PTT Partial Thromboplastin Tim 32 SECONDS (26.4-36.2)
[2019-09-25 11:32] LABS: Influenza A - CEPHEID Flu A NEGATIVE (NEGATIVE); Influenza B - CEPHEID Flu B NEGATIVE (NEGATIVE)
[2019-09-25 11:32] LABS: Alanine Aminotransferase 28 IU/L (<50); Albumin 4.9 g/dL (3.5-5.0); Albumin Globulin Ratio 1.5 (1.0-2.8); Alkaline Phosphatase 77 U/L (38-126); Amylase 73 U/L (30-110); Aspartate Aminotransferase 25 IU/L (17-59); Blood Urea Nitrogen 9 mg/dL (9-20); Calcium 9.8 mg/dL (8.4-10.2); Carbon Dioxide 29 mmol/L (22-32); Chloride 97 mmol/L (98-107); Estimated Glomerular Filt Rate > 60.0 mL/min (>60); Globulin 3.2 g/dL (1.7-4.1); Glucose 118 mg/dL (70-100); HEMOLYSIS < 15 (0-50); Lipase 106 U/L (23-300); Potassium 3.9 mmol/L (3.4-5.1); Sodium 137 mmol/L (137-145); Total Protein 8.1 g/dL (6.3-8.2)
[2019-09-25 12:00] VITALS: BP 128/76; PULSE 75; O2SAT 100
[2019-09-25 12:30] VITALS: BP 122/81; PULSE 73; O2SAT 100
[2019-09-25 12:32] LABS: Procalcitonin < 0.05 ng/mL (<0.5)
[2019-09-25] MEDS: KETOROLAC 60 MG/2 ML VIAL 30 MG IV (12:58)
[2019-09-25] MEDS: SUMAtriptan 6 MG/0.5 ML VIAL SUBCUT (12:59)
[2019-09-25 13:00] VITALS: BP 139/74; PULSE 75; O2SAT 100
[2019-09-25 13:27] LABS: UR Morphine/Opiate cutoff 300 Negative (Negative); Ur Creatinine 50 (Normal); Ur Specific Gravity 1.025 (Normal); Urine Amphetamines Negative (Negative); Urine Barbiturates Negative (Negative); Urine Benzodiazepines Negative (Negative); Urine Cocaine Negative (Negative); Urine MDMA Negative (Negative); Urine Methadone Negative (Negative); Urine Methamphetamines Negative (Negative); Urine Oxycodone Negative (Negative); Urine Phencyclidine Negative (Negative); Urine Tetrahydrocannabinol Negative (Negative); Urine Tricyclic Antidepressant Negative (Negative); Urine pH PH5 (Normal)
[2019-09-25 13:36] VITALS: BP 132/73
== END 2019-09-25 14:38 | disposition home or self-care (01) ==
PROVIDERS: Emergency Provider Nurse Practitioner Family
DX: R51 Headache (principal); R11.2 Nausea with vomiting, unspecified
CPT/HCPCS: 36415; 80053; 80305; 81003; 82150; 83690; 84145; 85025; 85610; 85730; 87502; 96372; 96374; 96375; 99284; J1100; J1200; J1885; J2765; J3030

== ENCOUNTER → 2020-02-14 11:36 | Outpatient (CLI) | payer OTHER, SELFPAY ==
--- NOTE | 2020-02-14 | DI.MRI.S_ITS ---
PROCEDURE: MR HEAD/BRAIN WO CON INDICATIONS: NEW ONSET HEADACHE TECHNIQUE: Noncontrast axial T1 spin echo, axial T2 fast spin echo, sagittal and axial FLAIR, coronal T2 fast spin echo, axial gradient echo, axial diffusion and ADC through the brain. COMPARISON: [facility], CT, CT ANGIO HEAD AND NECK, 09/17/2019, 14:02. [facility], CT, CT HEAD/BRAIN WO CON, 09/17/2019, 13:46. [facility], CT, CT HEAD/BRAIN WO CON, 09/21/2019, 12:02. FINDINGS: Image quality: Excellent. CSF Spaces: Basal cisterns are patent. No extra-axial fluid collections. Ventricles are normal in size and shape. Brain: There are several foci of T2 hyperintensity in white matter. For example, a tiny focus of T2 hyperintensity is present in the corpus callosum. A subcortical white matter T2 hyperintensity is noted in the left frontal lobe. Another subcortical white matter T2 hyperintensity is seen in the right parietal lobe. No intracranial masses or hemorrhage. [place]/white matter interface is normal. Brainstem appears normal. Diffusion-weighted images demonstrate no acute ischemic insult. No chronic ischemic insults. Normal intravascular flow voids are present. Skull and face: Calvarium has normal marrow signal. Orbits appear normal. Sinuses: Sinuses and mastoids are clear. IMPRESSION: Several foci of white matter T2 hyperintensity involving corpus callosum and subcortical white matter. Multiple sclerosis is a diagnostic consideration. Recommend clinical correlation. Dictated by: Peri Gonzalez M.D. on 02/14/2020 at 12:50 Approved by: Peri Gonzalez M.D. on 02/14/2020 at 12:57
== END ==
PROVIDERS: Referring Provider Psychiatry & Neurology Neurology; Visit Provider Psychiatry & Neurology Neurology
DX: R51 Headache (principal)
CPT/HCPCS: 70551